=== PATIENT | male | born 1990 | race African-American/Black ===

== ENCOUNTER 2016-04-11 14:13 | Emergency (ER) | payer SELFPAY ==
[~2016-04-11] VITALS: Ht 190.5 cm; Wt 79.4 kg
[2016-04-11] MEDS ORDERED: FAMO-63 PO (15:47)
[2016-04-11] MEDS ORDERED: PRED20TA PO (15:47)
--- NOTE | 2016-04-11 15:47 | PHYS DOC ---
Adult General Chief Complaint Chief Complaint: SKIN RASH/ABSCESS [facility] HPI Patient is a 25 year old male presents emergency Department today with a widespread, itchy rash that began 3 days ago. Patient states her changes to both his personal hygiene soaps as well as his laundry soaps. He denies any previous history of atopy. He denies any previous history of angioedema or anaphylaxis as well. Patient states that he has not taken any Benadryl at home to help with this itchy rash. Review of Systems Review of Systems Constitutional: Denies fever or chills [] Eyes: Denies change in visual acuity, redness, or eye pain [] HENT: Denies nasal congestion or sore throat [] Respiratory: Denies cough or shortness of breath [] Cardiovascular: No additional information not addressed in HPI [] GI: Denies abdominal pain, nausea, vomiting, bloody stools or diarrhea [] : Denies dysuria or hematuria [] Musculoskeletal: Denies back pain or joint pain [] Integument: Denies rash or skin lesions [] Neurologic: Denies headache, focal weakness or sensory changes [] Endocrine: Denies polyuria or polydipsia [] Allergies Allergies Allergies Coded Allergies Type Severity Reaction Last Updated Verified No Known Drug Allergies 04/11/16 No Physical Exam Physical Exam Constitutional: Well developed, well nourished, no acute distress, non-toxic appearance. [] HENT: Normocephalic, atraumatic, bilateral external ears normal, oropharynx moist, no oral exudates, nose normal. Is no angioedema. Eyes: PERRLA, EOMI, conjunctiva normal, no discharge. [] Neck: Normal range of motion, no tenderness, supple, no stridor. [] Cardiovascular:Heart rate regular rhythm, no murmur [] Lungs & Thorax: Bilateral breath sounds clear to auscultation [] Abdomen: Bowel sounds normal, soft, no tenderness, no masses, no pulsatile masses. [] Skin: Widespread maculopapular rash on patient's bilateral upper lower extremities as well as anterior posterior trunk without any patches of coalescence. There is no distinct pattern to this rash or herald patch. Back: No tenderness, no CVA tenderness. [] Extremities: No tenderness, no cyanosis, no clubbing, ROM intact, no edema. [] Neurologic: Alert and oriented X 3, normal motor function, normal sensory function, no focal deficits noted. [] Psychologic: Affect normal, judgement normal, mood normal. [] Current Patient Data Vital Signs Vital Signs Date Time Temp Pulse Resp B/P Pulse Ox O2 Delivery O2 Flow Rate FiO2 04/11/16 15:50 98.8 70 16 98 Room Air 98.8 EKG EKG [] Radiology/Procedures Radiology/Procedures [] Course & Med Decision Making Course & Med Decision Making Pertinent Labs and Imaging studies reviewed. (See chart for details) [] Dragon Disclaimer Dragon Disclaimer This electronic medical record was generated, in whole or in part, using a voice recognition dictation system. Departure Departure Impression: Primary Impression: Contact dermatitis Disposition: HOME, SELF-CARE Condition: GOOD Referrals: NON,STAFF (PCP) Patient Instructions: Contact Dermatitis, [id number] Additional Instructions: 1. Take the medication as prescribed. Take 25-50 mg of Benadryl every 6-8 hours as needed for itching. 2. Stay at a hot showers or hot baths. Warm or cool showers and baths will work. Avoid applying alcohol and witch jerad to the rash. 3. A pamphlet is provided to you for assistance in finding a primary care doctor to address your medical concerns and reevaluate or rash. Scripts Famotidine (Pepcid)20 Mg [id number] Mg PO BID 5 Days Prov:NO NIEVES 04/11/16 Prednisone 20 Mg Tablet2 Tab PO DAILY 5 Days Prov:NO NIEVES 04/11/16 NO NIEVES Apr 11, 2016 15:47
[2016-04-11 15:50] VITALS: BP 124/63
== END 2016-04-11 16:10 | disposition home or self-care (01) ==
LOC: ER 14:13
DX: L25.9 Unspecified contact dermatitis, unspecified cause (principal)
CPT/HCPCS: 99283

== ENCOUNTER 2016-04-18 10:59 | Emergency (ER) | payer SELFPAY ==
[~2016-04-18] VITALS: Ht 190.5 cm; Wt 77.1 kg
[~2016-04-18 10:59] MED LIST: FAMO-63 PO; PRED20TA PO
[2016-04-18 11:15] VITALS: BP 140/74
[2016-04-18] MEDS ORDERED: AZITHROMYCIN 250 MG TABLET PO ONE (12:00)
[2016-04-18] MEDS ORDERED: CEFTRIAXONE IM 250 MG VIAL. IM ONE (12:00)
[2016-04-18] MEDS ORDERED: DEXAMETHASONE SOD PHOS 20 MG/5 ML VIAL. IM ONE (12:00)
--- NOTE | 2016-04-18 12:06 | PHYS DOC ---
Past Medical History Past Medical History: No Pertinent History Past Surgical History: Other Additional Past Surgical Histo: R foot fx Alcohol Use: None Drug Use: None Adult General Chief Complaint Chief Complaint: SEXUALLY TRANSMITTED DISEASE HPI HPI Patient is a 25 year old male who presents with diffuse itchy rash for 1 week. He states that the rash started after using a new kind of soap. He also fell asleep on his mother's floor shortly after she used a carpet refresher that had not yet been cleaned off. He was seen here on 04/11/16 for the same. He was prescribed prednisone. He stopped taking the prednisone after a couple of days because the rash was improving. The rash returned yesterday. He denies fever, shortness of breath, or angioedema. The patient also requests STD testing. He had unprotected sex a few months ago and again within the last week. He denies urinary symptoms, penile discharge, testicular pain or swelling, or abdominal pain. He does not have a PCP. Review of Systems Review of Systems Constitutional: Denies fever or chills. [] GI: Denies abdominal pain, nausea, vomiting, bloody stools or diarrhea. [] : Denies dysuria, hematuria or urinary frequency. Denies penile discharge, testicular pain or swelling. Musculoskeletal: Denies back pain or joint pain. [] Integument: Reports diffuse hives. Neurologic: Denies headache, focal weakness or sensory changes. [] Allergies Allergies Allergies Coded Allergies Type Severity Reaction Last Updated Verified No Known Drug Allergies 04/11/16 No Physical Exam Physical Exam Constitutional: Well developed, well nourished, no acute distress, non-toxic appearance. [] HENT: Normocephalic, atraumatic, oropharynx moist. [] Eyes: PERRLA, EOMI, conjunctiva normal, no discharge. [] Neck: Normal range of motion, no tenderness, supple, no stridor. [] Cardiovascular: Heart rate regular rhythm, no murmur. [] Lungs & Thorax: Bilateral breath sounds clear to auscultation without wheezes, rales, or rhonchi. [] Abdomen: Bowel sounds normal, soft, no tenderness, no masses, no pulsatile masses. [] Skin: Warm, dry, no erythema. Diffuse urticaria. Neurologic: Alert and oriented X 3, normal motor function, normal sensory function, no focal deficits noted. [] Psychologic: Affect normal, judgement normal, mood normal. [] Current Patient Data Vital Signs Vital Signs Date Time Temp Pulse Resp B/P Pulse Ox O2 Delivery O2 Flow Rate FiO2 04/18/16 11:15 98.2 88 20 98 Room Air 98.2 EKG EKG [] Radiology/Procedures Radiology/Procedures [] Course & Med Decision Making Course & Med Decision Making Pertinent Labs and Imaging studies reviewed. (See chart for details) [] Dragon Disclaimer Dragon Disclaimer This electronic medical record was generated, in whole or in part, using a voice recognition dictation system. Departure Departure Impression: Primary Impression: Urticaria Additional Impression: Screening for STD (sexually transmitted disease) Disposition: HOME, SELF-CARE Condition: STABLE Referrals: NO PCP (PCP) Patient Instructions: Hives, [id number], Sexually Transmitted Disease, Easy- to-Read Additional Instructions: You were given a shot of steroids in the emergency department to help with your hives. You may take Benadryl and Pepcid at home to help with the itching. Use according to package instructions. You were treated for gonorrhea and chlamydia in the emergency department. We will not have your results back for 2-3 days. You will receive a phone call if your test returns positive. Please do not have sex for 1 week to be sure that the treatment is complete. Please use condoms to protect yourself against STDs in the future. Please follow up with a primary care doctor if your hives return. You should have allergy testing to identify the cause of your hives. Return to the emergency department if you have any new or concerning symptoms. Problem Qualifiers MADISON KHALIL Apr 18, 2016 12:06
[2016-04-18 12:26] LABS: BILIRUBIN,URINE NEGATIVE (NEG); GLUCOSE,URINE NEGATIVE (NEG); NITRITE,URINE NEGATIVE (NEG); PROTEIN,URINE NEGATIVE (NEG-TRACE)
[2016-04-18 12:27] LABS: BACTERIA,URINE 0 /HPF (0-FEW); RBC,URINE 0 /HPF (0-2)
== END 2016-04-18 12:30 | disposition home or self-care (01) ==
LOC: ER 10:59
DX: L50.9 Urticaria, unspecified (principal); Z11.3 Encounter for screening for infections with a predominantly sexual mode of transmission
CPT/HCPCS: 81001; 87086; 87491; 87591; 96372; 99284; J0696; J1100; Q0144

== ENCOUNTER 2019-11-12 18:45 | Emergency (ER) | payer SELFPAY ==
[~2019-11-12] VITALS: Ht 190.5 cm; Wt 79.5 kg
[2019-11-12 19:08] VITALS: BP 118/70
--- NOTE | 2019-11-12 20:33 | PHYS DOC ---
Past Medical History Past Medical History: No Pertinent History Past Surgical History: Other Additional Past Surgical Histo: R foot fx Smoking Status: Current Every Day Smoker Alcohol Use: None Drug Use: None General Adult EDM: Chief Complaint: ABDOMINAL PAIN HPI: HPI: Patient is a 29 year old male who presents to the ED today complaining of 5 out of 10 right lower quadrant abdominal pain as well as right flank pain that began this morning at 2 AM. Patient denies any pain waking him up. Describes the pain as sharp and intermittent. States the pain is worse on certain movements. 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 Denies any nausea, vomiting, fever, diarrhea. Patient is requesting a note for work. He is also stating he does not have time to be in the ED for long because the girlfriend needs to be at work by 10:00. It is 8:15 right now. Informed patient considering his complaint of right lower quadrant abdominal pain and flank pain he will need appendicitis work-up Review of Systems: Review of Systems: Constitutional: Denies fever or chills. [] Eyes: Denies change in visual acuity. [] HENT: Denies nasal congestion or sore throat. [] Respiratory: Denies cough or shortness of breath. [] Cardiovascular: Denies chest pain or edema. [] GI: Reports right lower quadrant abdominal pain, denies nausea, vomiting, bloody stools or diarrhea. [] : Reports right flank pain. Denies dysuria. [] Musculoskeletal: Denies back pain or joint pain. [] Integument: Denies rash. [] Neurologic: Denies headache, focal weakness or sensory changes. [] Psychiatric: Denies depression or anxiety. [] Heart Score: Risk Factors: Risk Factors: DM, Current or recent (<one month) smoker, HTN, HLP, family history of CAD, obesity. Risk Scores: Score 0 - 3: 2.5% MACE over next 6 weeks - Discharge Home Score 4 - 6: 20.3% MACE over next 6 weeks - Admit for Clinical Observation Score 7 - 10: 72.7% MACE over next 6 weeks - Early Invasive Strategies Allergies: Allergies: Allergies Coded Allergies Type Severity Reaction Last Updated Verified No Known Drug Allergies 04/11/16 No Physical Exam: PE: Constitutional: Well developed, well nourished, no acute distress, non-toxic appearance. [] HENT: Normocephalic, atraumatic, bilateral external ears normal, oropharynx moist, no oral exudates, nose normal. [] Eyes: PERRLA, EOMI, conjunctiva normal, no discharge. [] Neck: Normal range of motion, no tenderness, supple, no stridor. [] Cardiovascular:Heart rate regular rhythm, no murmur [] Lungs & Thorax: Bilateral breath sounds clear to auscultation [] Abdomen: Bowel sounds normal, soft, no right upper quadrant tenderness, negative England sign, slight right lower quadrant tenderness, negative psoas sign, negative obturator sign, negative Rovsing sign, no guarding, no rebound pain or tenderness, no masses, no pulsatile masses. [] Skin: Warm, dry, no erythema, no rash. [] Back: No tenderness, no CVA tenderness. [] Extremities: No tenderness, no cyanosis, no clubbing, ROM intact, no edema. [] Neurologic: Alert and oriented X 3, normal motor function, normal sensory function, no focal deficits noted. [] Psychologic: Affect normal, judgement normal, mood normal. [] Current Patient Data: Vital Signs: Vital Signs Date Time Temp Pulse Resp B/P (MAP) Pulse Ox O2 Delivery O2 Flow Rate FiO2 11/12/19 19:08 98.5 82 18 118/70 (86) 96 98.5 EKG: EKG: [] Radiology/Procedures: Radiology/Procedures: [] Course & Med Decision Making: Course & Med Decision Making Pertinent Labs and Imaging studies reviewed. (See chart for details) This is a 29-year-old male patient who presents to the ED today complaining of right lower quadrant abdominal pain as well as flank pain, symptoms began at 2 AM. Patient is concerned about being in the ED for too long, the girlfriend needs to be at work by 10:00pm it is 8:15 PM. Informed patient considering his complaint he will need appendicitis work-up which might not be done by 10pm. He decided to leave stating he will return later if need be. Note for work given per his request Patient is alert and oriented and able to make decisions on his own. He was given the risk of leaving AMA including appendicitis, , disability. He signed out AMA Dragon Disclaimer: Dragluis Disclaimer: This electronic medical record was generated, in whole or in part, using a voice recognition dictation system. Departure Departure Impression: Primary Impression: Abdominal pain Qualified Codes: R10.31 - Right lower quadrant pain Disposition: 07 AGAINST MEDICAL ADVICE Condition: STABLE Referrals: NO PCP (PCP) Justicifation of Admission Dx: Justifications for Admission: Justification of Admission Dx: N/A KATIA HASSAN APRN Nov 12, 2019 20:33
== END 2019-11-12 20:34 | disposition left against medical advice (07) ==
LOC: ER 18:45
DX: R10.31 Right lower quadrant pain (principal); F17.200 Nicotine dependence, unspecified, uncomplicated
CPT/HCPCS: 99281